=== PATIENT | female | born 1935 | race African-American/Black ===

== ENCOUNTER 2020-04-17 15:06 | Emergency (ER) | payer OTHER ==
[~2020-04-17] VITALS: Ht 165.1 cm; Wt 65.0 kg
[~2020-04-17 15:06] MED LIST: ALBU18HF2 IH; ATROV IH; BECL8.7A6 IH; FAMO40TA70 PO; HYDR25TA PO; LOVA40TA73 PO; POTA10CA42 PO; TAMS-11 PO
[2020-04-17] MEDS ORDERED: MORPHINE SULFATE 2 MG/ML CPJ (NOT FOR IM USE) IV ONE (15:45)
[2020-04-17] MEDS ORDERED: SODIUM CHLORIDE 0.9% 1,000 ML IV ONE (15:45)
[2020-04-17 16:57] LABS: MEAN CORPUSCULAR HEMOGLOBIN 16.9 pg (28.0-32.0); MEAN CORPUSCULAR VOLUME 60.4 fL (81.0-99.0); MEAN PLATELET VOLUME 8.6 fl (7.4-10.4); PLATELET 268 x1000/uL (130-400); RED BLOOD CELL COUNT 2.58 mill/uL (4.2-5.4); RED CELL DISTRIBUTION WIDTH 22.7 % (11.6-14.6)
[2020-04-17 17:02] LABS: CHLORIDE 111 mEq/L (98-107)
[2020-04-17 17:03] LABS: INR 1.1; PARTIAL THROMBOPLASTIN TIME 23.6 sec (23.4-31.0); PROTHROMBIN TIME 11.3 sec (9.6-11.0)
[2020-04-17 17:08] LABS: HEMOGLOBIN. 4.3 g/dL (12.0-16.0)
[2020-04-17 17:09] LABS: HEMATOCRIT. 15.6 % (36.0-48.0)
[2020-04-17 17:39] LABS: PLATELET ESTIMATE NORMAL
[2020-04-17] MEDS ORDERED: ONDANSETRON HCL 4MG/2ML INJ IV STA (17:58)
[2020-04-17] MEDS ORDERED: MORPHINE SULFATE 4 MG/ML CPJ (NOT FOR IM USE) IV STA (17:58)
[2020-04-17] MEDS ORDERED: FUROSEMIDE 20MG/2ML VIAL IVP ONE (18:00)
[2020-04-17] MEDS ORDERED: LORAZEPAM 2MG/ML CPJ IV ONE (19:15)
[2020-04-18 00:10] VITALS: BP 154/72
== END 2020-04-18 01:08 | disposition short-term general hospital (02) ==
LOC: ER 15:06
DX: S72.8X1A Other fracture of right femur, initial encounter for closed fracture (principal); I11.0 Hypertensive heart disease with heart failure; I50.9 Heart failure, unspecified; J45.909 Unspecified asthma, uncomplicated; E78.00 Pure hypercholesterolemia, unspecified; D64.9 Anemia, unspecified; F03.90 Unspecified dementia, unspecified severity, without behavioral disturbance, psychotic disturbance, mood disturbance, and anxiety; Z03.818 Encounter for observation for suspected exposure to other biological agents ruled out; Z88.8 Allergy status to other drugs, medicaments and biological substances; W01.0XXA Fall on same level from slipping, tripping and stumbling without subsequent striking against object, initial encounter; Y93.89 Activity, other specified; Y92.010 Kitchen of single-family (private) house as the place of occurrence of the external cause
CPT/HCPCS: 36415; 70450; 71045; 73521; 73560; 73590; 73600; 80053; 82270; 83880; 84484; 85025; 85610; 85730; 86850; 86900; 86901; 86920; 87426; 93005; 93970; 96361; 96374; 96375; 96376; 99285; J1940; J2060; J2270; J2405; J7030; P9016; P9021

== ENCOUNTER 2022-03-29 17:20 | Emergency (ER) | payer OTHER ==
[~2022-03-29] VITALS: Ht 160 cm; Wt 52.0 kg
[2022-03-29 18:50] LABS: BASOPHILS % 0.5 % (0.0-2.0); EOSINOPHILS % 0.9 % (0.0-5.0); HEMATOCRIT. 38.4 % (36.0-48.0); HEMOGLOBIN. 12.5 g/dL (12.0-16.0); LYMPHOCYTES % 19.9 % (20.0-50.0); MEAN CORPUSCULAR HEMOGLOBIN 31.9 pg (28.0-32.0); MEAN CORPUSCULAR VOLUME 97.9 fL (81.0-99.0); MEAN PLATELET VOLUME 9.4 fl (7.4-10.4); MONOCYTES % 8.5 % (2.0-8.0); NEUTROPHILS % 70.2 % (40.0-76.0); PLATELET 140 x1000/uL (130-400); RED BLOOD CELL COUNT 3.93 mill/uL (4.2-5.4); RED CELL DISTRIBUTION WIDTH 15.2 % (11.6-14.6)
[2022-03-29 19:09] LABS: CHLORIDE 113 mEq/L (98-107)
[2022-03-29 19:23] LABS: CREATINE KINASE 76 IU/L (26-192); ETHANOL BLOOD < 10 mg/dL
[2022-03-29] MEDS ORDERED: QUETIAPINE FUMARATE 25MG TABLET PO ONE (20:45)
[2022-03-29] MEDS ORDERED: LEVETIRACETAM 500MG PREMIX 100 ML IV ONE (20:45)
[2022-03-29] MEDS ORDERED: KEPP500 MT (21:26)
[2022-03-30 01:17] LABS: CLARITY URINE TURBID (CLEAR); COLOR URINE YELLOW (YELLOW); KETONES URINE NEGATIVE (NEGATIVE); LEUKOCYTE ESTERASE URINE 3+ (NEGATIVE); NITRITE URINE POSITIVE (NEGATIVE); OCCULT BLOOD URINE 3+ (NEGATIVE); PROTEIN URINE 2+ (NEGATIVE); SPECIFIC GRAVITY URINE 1.019 (1.005-1.030)
[2022-03-30] MEDS ORDERED: CEPH500C2 MT (01:22)
[2022-03-30] MEDS ORDERED: CEFTRIAXONE 1 G PREMIX 50 ML IV ONE (01:30)
[2022-03-30 01:37] LABS: *AMPHETAMINES SCREEN URINE NEGATIVE (NEGATIVE); *BARBITURATES SCREEN URINE NEGATIVE (NEGATIVE); *BENZODIAZEPINES SCREEN URINE NEGATIVE (NEGATIVE); *COCAINE SCREEN URINE NEGATIVE (NEGATIVE); CANNABINOID URINE SCREEN NEGATIVE (NEGATIVE); METHADONE URINE SCREEN NEGATIVE (NEGATIVE); OPIATES URINE SCREEN NEGATIVE (NEGATIVE); PHENCYCLIDINE URINE SCREEN NEGATIVE (NEGATIVE)
[2022-03-30 02:00] VITALS: BP 137/64
== END 2022-03-30 04:04 ==
LOC: ER 17:20
DX: R56.9 Unspecified convulsions (principal); F03.90 Unspecified dementia, unspecified severity, without behavioral disturbance, psychotic disturbance, mood disturbance, and anxiety; J45.909 Unspecified asthma, uncomplicated; E78.00 Pure hypercholesterolemia, unspecified; I10 Essential (primary) hypertension; Z79.899 Other long term (current) drug therapy
CPT/HCPCS: 36415; 70450; 71045; 80053; 80165; 80185; 80305; 80320; 81003; 82140; 82550; 82962; 83605; 83690; 84443; 84484; 85025; 87077; 87086; 87186; 96365; 96367; 99285; J0696; J1953; G0480